=== PATIENT | male | born 1995 | race Caucasian/White ===

== ENCOUNTER 2017-03-26 20:37 | Emergency (ER) | payer OTHER ==
[2017-03-26 20:46] VITALS: O2SAT 98
[2017-03-26] MEDS ORDERED: NS 1,000 ML IV ONE ×2 (20:57→21:48)
--- NOTE | 2017-03-26 20:57 | EDPHY ---
H & P Time Seen by Provider: 03/26/17 20:44 HPI/ROS: CHIEF COMPLAINT: Nausea vomiting HISTORY OF PRESENT ILLNESS: This is a 21-year-old male presenting to the emergency department via EMS. Patient states he was diagnosed with strep yesterday afternoon placed on Keflex 1st dose yesterday evening, started feeling lightheaded nausea vomiting this afternoon. 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 Denies any chest pain shortness of breath REVIEW OF SYSTEMS: Constitutional: No fever, no chills. Decreased p.o. intake Eyes: No discharge. No blurred vision ENT: Intermittent sore throat. Cardiovascular: No chest pain, no palpitations. Respiratory: No cough, no shortness of breath. Gastrointestinal: No abdominal pain. Intermittent nausea vomiting today Genitourinary: No hematuria. Musculoskeletal: No back pain. Skin: No rashes. Neurological: No headache. Smoking Status: Never smoked Physical Exam: General Appearance: Alert, no distress. Non ill-appearing Eyes: Pupils equal and round no pallor or injection. ENT, Mouth: Mucous membranes moist. Posterior oropharynx erythemic uvula midline no lymphadenopathy Respiratory: There are no retractions, lungs are clear to auscultation. Cardiovascular: Regular rate and rhythm. Gastrointestinal: Abdomen is soft and nontender, no masses, bowel sounds normal. Neurological: No focal deficits. Ambulatory without gait disturbance Skin: Diaphoretic Musculoskeletal: Neck is supple nontender . Extremities: symmetrical, full range of motion. Psychiatric: Patient is oriented X 3, patient acting appropriate Constitutional: Initial Vital Signs Temperature (C) 36.7 C 03/26/17 20:44 Heart Rate 87 03/26/17 20:44 Respiratory Rate 14 03/26/17 20:44 Blood Pressure 132/79 H 03/26/17 20:44 O2 Sat (%) 98 03/26/17 20:44 O2 Delivery Mode Room Air Allergies/Adverse Reactions: Penicillins Allergy (Verified 03/26/17 20:44) Home Medications: Medication Instructions Recorded AZITHROMYCIN [Z-PACK] 250 mg PO DAILY #6 tab 03/26/17 Keflex 03/26/17 Medical Decision Making ED Course/Re-evaluation: Discussed the plan of care: CBC, BMP, UA, IV fluids for dehydration 2230: Patient re-evaluation tolerating p.o. intake, no nausea or vomiting no apparent distress well appearing VSS 2240: Discussed discharge instructions with patient, do not take any of the Keflex a longer due to questionable allergy to Keflex. I have written a new prescription for antibiotics at [facility] and you can start that tomorrow. Discharge home---> stable. Differential Diagnosis: Other differential diagnosis considered not limited to drug allergic reaction, heat exhaustion, and gastroenteritis - Data Points Laboratory Results: Laboratory Results 03/26/17 21:00 03/26/17 21:00 03/26/17 03/26/17 03/26/17 21:00 21:00 21:00 WBC 8.05 10^3/uL 10^3/uL (3.80-9.50) RBC 5.22 10^6/uL 10^6/uL (4.40-6.38) Hgb 15.3 g/dL g/dL (13.7-17.5) Hct 43.8 % % (40.0-51.0) MCV 83.9 fL fL (81.5-99.8) MCH 29.3 pg pg (27.9-34.1) MCHC 34.9 g/dL g/dL (32.4-36.7) RDW 12.2 % % (11.5-15.2) Plt Count 308 10^3/uL 10^3/uL (150-400) MPV 8.9 fL fL (8.7-11.7) Neut % (Auto) 71.9 % % (39.3-74.2) Lymph % (Auto) 17.1 % % (15.0-45.0) [place] % (Auto) 9.6 % % (4.5-13.0) Eos % (Auto) 0.5 % L % (0.6-7.6) Baso % (Auto) 0.5 % % (0.3-1.7) Nucleat RBC Rel Count 0.0 % % (0.0-0.2) Absolute Neuts (auto) 5.79 10^3/uL 10^3/uL (1.70-6.50) Absolute Lymphs (auto) 1.38 10^3/uL 10^3/uL (1.00-3.00) Absolute Monos (auto) 0.77 10^3/uL 10^3/uL (0.30-0.80) Absolute Eos (auto) 0.04 10^3/uL 10^3/uL (0.03-0.40) Absolute Basos (auto) 0.04 10^3/uL 10^3/uL (0.02-0.10) Absolute Nucleated RBC 0.00 10^3/uL 10^3/uL (0-0.01) Immature Gran % 0.4 % % (0.0-1.1) Immature Gran # 0.03 10^3/uL 10^3/uL (0.00-0.10) Sodium 140 mEq/L mEq/L (134-144) Potassium 3.2 mEq/L L mEq/L (3.5-5.2) Chloride 115 mEq/L H mEq/L (97-110) Carbon Dioxide 16 mEq/l L mEq/l (22-31) Anion Gap 9 mEq/L mEq/L (8-16) BUN 10 mg/dL mg/dL (7-23) Creatinine 0.7 mg/dL mg/dL (0.7-1.3) Estimated GFR > 60 Glucose 59 mg/dL L mg/dL (70-100) Calcium 7.1 mg/dL L mg/dL (8.5-10.4) Urine Color YELLOW Urine Appearance CLEAR Urine pH 6.0 (5.0-7.5) Ur Specific [place] 1.008 (1.002-1.030) Urine Protein NEGATIVE (NEGATIVE) Urine Ketones 2+ H (NEGATIVE) Urine Blood NEGATIVE (NEGATIVE) Urine Nitrate NEGATIVE (NEGATIVE) Urine Bilirubin NEGATIVE (NEGATIVE) Urine Urobilinogen NEGATIVE EU EU (0.2-1.0) Ur Leukocyte Esterase NEGATIVE (NEGATIVE) Urine Glucose NEGATIVE (NEGATIVE) Medications Given: Discontinued Medications Sodium Chloride (Ns) 1,000 mls @ 0 mls/hr IV ONCE ONE PRN Reason: Wide Open Stop: 03/26/17 20:58 Last Admin: 03/26/17 21:11 Dose: 1,000 mls Sodium Chloride (Ns) 1,000 mls @ 0 mls/hr IV ONCE ONE; Wide Open PRN Reason: Protocol Stop: 03/26/17 21:49 Last Admin: 03/26/17 22:01 Dose: 1,000 mls Departure - Departure Disposition: Home, Routine, Self-Care Clinical Impression: Nausea & vomiting Qualifiers: Vomiting type: unspecified Vomiting Intractability: non-intractable Qualified Code(s): R11.2 - Nausea with vomiting, unspecified Condition: Good Instructions: Acute Nausea and Vomiting (ED) Additional Instructions: 1. Increase fluid intake. I recommended bland diet for the next 24 hours such as crackers toast applesauce 2. I have given you a prescription for azithromycin due to her allergy to the Keflex which is a cephalosporin and penicillin 3. Start the new antibiotic tomorrow. After being on antibiotics for 24 hours for your strep throw away year old toothbrush 4. Handwashing to prevent spread of any germs of viruses. Do not share any water bottles glasses or kitchen utensils until symptoms have resolved and you have had the full course of antibiotic Referrals: NONE *PRIMARY CARE P,. [Primary Care Provider] - As per Instructions [facility],. [Clinic] - As per Instructions Prescriptions: AZITHROMYCIN [Z-PACK] 250 mg PO DAILY #6 tab
[2017-03-26 21:17] LABS: % IMMATURE GRANULYOCYTES 0.4 % (0.0-1.1); ABSOLUTE IMMATURE GRANULOCYTES 0.03 10^3/uL (0.00-0.10); ADD DIFF? NO; ADD MORPH? NO; ADD SCAN? NO; ATYPICAL LYMPHOCYTE FLAG 10 (0-99); FRAGMENT RBC FLAG 0 (0-99); HEMATOCRIT 43.8 % (40.0-51.0); HEMOGLOBIN 15.3 g/dL (13.7-17.5); LEFT SHIFT FLG 0 (0-99); LIPEMIA HEMOLYSIS FLAG 90 (0-99); MEAN CELL HEMOGLOBIN 29.3 pg (27.9-34.1); MEAN CELL HEMOGLOBIN CONCENTR. 34.9 g/dL (32.4-36.7); MEAN CELL VOLUME 83.9 fL (81.5-99.8); MEAN PLATELET VOLUME 8.9 fL (8.7-11.7); PLATELET CLUMPS FLAG 10 (0-99); PLATELET COUNT 308 10^3/uL (150-400); RED BLOOD CELL COUNT 5.22 10^6/uL (4.40-6.38); RED CELL DISTRIBUTION WIDTH 12.2 % (11.5-15.2)
[2017-03-26 21:19] LABS: COLOR YELLOW; LEUKOCYTE ESTERASE,URINE NEGATIVE (NEGATIVE); NITRITE,URINE NEGATIVE (NEGATIVE)
[2017-03-26 21:37] LABS: ANION GAP 9 mEq/L (8-16); CALCIUM 7.1 mg/dL (8.5-10.4); CARBON DIOXIDE 16 mEq/l (22-31); CHLORIDE 115 mEq/L (97-110); CREATININE 0.7 mg/dL (0.7-1.3); GLOMERULAR FILTRATION RATE > 60; GLUCOSE 59 mg/dL (70-100); POTASSIUM 3.2 mEq/L (3.5-5.2); SODIUM 140 mEq/L (134-144)
[2017-03-26 22:43] VITALS: BP 129/85; PULSE 77; RESP 12; TEMP 97.5
== END 2017-03-26 22:42 | disposition home or self-care (01) ==
DX: R11.2 Nausea with vomiting, unspecified (principal)